=== PATIENT | male | born 1955 | race Caucasian/White ===

== ENCOUNTER 2016-12-24 06:11 | Day surgery (SDC) | payer OTHER ==
[2016-12-24] MEDS ORDERED: IV START KIT ONE (06:24)
[2016-12-24] MEDS ORDERED: LACTATED RINGERS 1,000 ML ONE ×2 (06:24→07:58)
[2016-12-24] MEDS ORDERED: MIDAZOLAM HCL 5 MG/5 ML VIAL ONE (06:30)
[2016-12-24] MEDS ORDERED: FENTANYL 5 ML ONE (06:30)
[2016-12-24] MEDS ORDERED: MIDAZOLAM HCL 5 MG/5 ML VIAL IV PRN (07:09)
[2016-12-24] MEDS ORDERED: FENTANYL 250 MCG/5 ML AMP IV PRN (07:09)
[2016-12-24] MEDS ORDERED: LACTATED RINGERS 1,000 ML IV SCH (07:15)
[2016-12-24] MEDS ORDERED: PROPOFOL 20 ML IV ONE (07:56)
== END 2016-12-24 09:10 | disposition home or self-care (01) ==
LOC: SDC 06:11
PROVIDERS: ATTEND Family Medicine
PROC: 0DJD8ZZ Inspection of Lower Intestinal Tract, Via Natural or Artificial Opening Endoscopic (ICD-10-PCS; principal; 2016-12-24)
DX: Z12.11 Encounter for screening for malignant neoplasm of colon (principal); Q43.8 Other specified congenital malformations of intestine; I10 Essential (primary) hypertension; E78.00 Pure hypercholesterolemia, unspecified; K21.9 Gastro-esophageal reflux disease without esophagitis; R20.9 Unspecified disturbances of skin sensation